=== PATIENT | male | born 2000 | race Hispanic/Latino ===

== ENCOUNTER 2020-05-06 17:04 | Emergency (ER) | payer OTHER ==
[2020-05-06] MEDS ORDERED: ONDANSETRON HCL 4 MG/2 ML VIAL ONE (17:26)
[2020-05-06] MEDS ORDERED: SODIUM CHLORIDE 0.9% 1000ML 1,000 ML IV ONE (17:26)
[2020-05-06] MEDS ORDERED: ACETAMINOPHEN EXTRA STRENGTH 500 MG TABLET ONE (19:44)
== END 2020-05-06 20:00 | disposition home or self-care (01) ==
LOC: EEVIPCON 17:04 → EDH 17:04
DX: F41.1 Generalized anxiety disorder (principal); R07.89 Other chest pain; F31.9 Bipolar disorder, unspecified
CPT/HCPCS: 36415; 82550; 84484; 93005; 96361; 96374; 99284; J2405; J7030

== ENCOUNTER 2020-05-07 08:01 | Emergency (ER) | payer OTHER | END 2020-05-07 09:42 | LOC: EDH 08:01 → EEVIPCON 08:01 → EDH 09:42 | DX: R07.89 Other chest pain (principal); R06.02 Shortness of breath; Z20.828 Contact with and (suspected) exposure to other viral communicable diseases; F31.9 Bipolar disorder, unspecified | CPT/HCPCS: 71045; 87426; 99284; U0003 ==

== ENCOUNTER 2025-02-22 15:04 | Emergency (ER) | payer OTHER ==
[~2025-02-22] VITALS: Ht 182.9 cm; Wt 88.5 kg
--- NOTE | 2025-02-22 17:00 | HMCIMG ---
EXAM: CR Nasal Bones, 3 View. CLINICAL HISTORY: injury COMPARISON: None provided. FINDINGS: BONES: Mildly displaced nasal bone fracture. No additional fracture. SINUSES: Clear sinuses SOFT TISSUES: The soft tissues are unremarkable. IMPRESSION: 1. Mildly displaced nasal bone fracture. No additional fracture. 2. Clear sinuses /[place]
[2025-02-22] MEDS: OXYmetazoline HCL SPRAY 100 SPRAYS/15 ML BOTTLE EN STA ×2 (17:49→17:52)
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
[2025-02-22] MEDS ORDERED: IBUP-1492 PO (18:21)
[2025-02-22 18:28] VITALS: BP 129/71; PULSE 70; RESP 20; TEMP 98.1; O2SAT 99
--- NOTE | 2025-02-22 18:37 | HMCIMG ---
EXAM: CR Nasal Bones, 3 View. CLINICAL HISTORY: post reduction COMPARISON: None provided. FINDINGS: BONES: Redemonstration of a nasal bone fracture with no significant change when compared with the prior exam. SINUSES: No air-fluid level. SOFT TISSUES: The soft tissues are unremarkable. IMPRESSION: Redemonstration of a nasal bone fracture with no significant change when compared with the prior exam. /[place]
== END 2025-02-22 18:34 | disposition home or self-care (01) ==
LOC: EEVIPCON 15:04 → EDH 15:04
DX: S02.2XXA Fracture of nasal bones, initial encounter for closed fracture (principal); F41.9 Anxiety disorder, unspecified; F20.9 Schizophrenia, unspecified; F31.9 Bipolar disorder, unspecified; Z91.030 Bee allergy status; Y04.0XXA Assault by unarmed brawl or fight, initial encounter; Y93.89 Activity, other specified; Y92.89 Other specified places as the place of occurrence of the external cause; Y99.8 Other external cause status
CPT/HCPCS: 99283; 96372; 70160 ×2; Q0162 ×2; J2270